=== PATIENT | female | born 1950 | race Caucasian/White ===

== ENCOUNTER → 2020-01-20 16:55 | Outpatient (CLI) | payer OTHER, SELFPAY ==
--- NOTE | 2020-01-20 | EMB_PTH ---
PATIENT: ELIAS HAMILTON LOC: [facility] U#:[id number] AGE/SX: 74/F ROOM: RE01/20/[address]: WILDER Lira : 1950 BED: DIS: SPEC #: [id number] RECD: 01/20/20 16:50 STATUS: SON GISELLA #: [id number] PITO: 01/20/20 00:[address]: Halle Ryder NP DEPT: SURGICAL PATHOLOGY RECD BY: Cammie Bullard ENTERED: 01/21/20 09:03 SP TYPE: ENDOM BX/C JARROD DR: Dr. Rito Newsome DO Tissues: Endometrium, NOS Procedures: Surgery Specimen Level IV HEADER OPERATION: Endometrial biopsy PRE-OP DIAGNOSIS: PMB TISSUE SUBMITTED: Endometrial biopsy MICROSCOPIC DIAGNOSIS Endometrium, biopsy: Benign strips of superficial glandular mucosa. AM:stoney 01/25/20 MICROSCOPIC DESCRIPTION Slides are reviewed. GROSS DESCRIPTION Received is one container labeled with the patient's name and not further designated. The specimen consists of multiple fragments of hemorrhagic soft tissue mixed with blood clot that in aggregate measure 2.5 x 2 x 0.2 cm. The specimen is totally submitted in one cassette. / SJ:stoney 01/21/20 TC:5 CPT: 71972
[2020-01-20 14:00] VITALS: BMI 25.6
[2020-01-28 05:46] LABS: HPV APTIMA, High Risk Negative (Negative)
== END ==
PROVIDERS: PCP Family Medicine; Referring Provider Nurse Practitioner Women's Health; Visit Provider Nurse Practitioner Women's Health
DX: Z12.4 Encounter for screening for malignant neoplasm of cervix (principal)
CPT/HCPCS: 87624; 88175; 88305; G0145

== ENCOUNTER → 2020-01-25 13:33 | Outpatient (CLI) | payer SELFPAY ==
[2020-01-20 14:00] VITALS: BMI 25.6
--- NOTE | 2020-01-25 13:38 | US_ITS ---
STUDY: ULTRASOUND TRANSVAGINAL CLINICAL: Female, 69 years old. Postmenopausal bleeding. TECHNIQUE: Transabdominal and Transvaginal COMPARISON: None. FINDINGS: The uterus is anteverted, midline and measures 7.6 x 5.2 x 3.3 cm. Endometrium measures 3 mm. Endometrial canal is distended with fluid. 2 mm x 2 mm echogenic nodule within the endometrium. Right ovary measures 2.0 x 1.3 x 1.3 cm and is normal. Left ovary not visualized. No fluid in the cul-de-sac. Urinary bladder volume is 346 mL. US/Pelvic (Non ) IMPRESSION: Endometrial nodule versus subserosal fibroid. Fluid in the endometrial canal. Left ovary not visualized. In view of the history of postmenopausal bleeding, malignancy should be considered. Recommend [facility] follow-up and consideration for MRI. Electronically Signed: Greg Lakhani MD at 23:30 EDT , Service support ,
--- NOTE | 2020-01-25 13:38 | US_ITS ---
STUDY: ULTRASOUND TRANSVAGINAL CLINICAL: Female, 69 years old. Postmenopausal bleeding. TECHNIQUE: Transabdominal and Transvaginal COMPARISON: None. FINDINGS: The uterus is anteverted, midline and measures 7.6 x 5.2 x 3.3 cm. Endometrium measures 3 mm. Endometrial canal is distended with fluid. 2 mm x 2 mm echogenic nodule within the endometrium. Right ovary measures 2.0 x 1.3 x 1.3 cm and is normal. Left ovary not visualized. No fluid in the cul-de-sac. Urinary bladder volume is 346 mL. US/Transvaginal Non- IMPRESSION: Endometrial nodule versus subserosal fibroid. Fluid in the endometrial canal. Left ovary not visualized. In view of the history of postmenopausal bleeding, malignancy should be considered. Recommend [facility] OPERATOR follow-up and consideration for MRI. Electronically Signed: Greg Lakhani MD at 23:30 EDT , Service support ,
== END ==
PROVIDERS: PCP Family Medicine; Referring Provider Nurse Practitioner Women's Health; Visit Provider Nurse Practitioner Women's Health
DX: N95.0 Postmenopausal bleeding (principal)
CPT/HCPCS: 76830; 76856

== ENCOUNTER 2020-02-09 12:47 | Day surgery (SDC) | payer SELFPAY ==
[2020-01-20 14:00] VITALS: BMI 25.6
[2020-02-03 12:03] VITALS: BMI 25.6
--- NOTE | 2020-02-09 | EMB_PTH ---
PATIENT: ELIAS HAMILTON LOC: [facility] – [place] U#:[id number] AGE/SX: 69/F ROOM: RE02/09/[address]: Dr. Anna Curran MD : 1950 BED: DIS: 02/09/2020 SPEC #: [id number] RECD: 02/09/20 14:58 STATUS: SON REQ #: [id number] PITO: 02/09/20 00:[address]: Anna Curran DEPT: SURGICAL PATHOLOGY RECD BY: Jose L Abad ENTERED: 02/10/20 08:11 SP TYPE: ENDOM BX/C OTHR DR: Dr. Rito Newsome DO Tissues: Endometrium, NOS Procedures: Surgery Specimen Level IV HEADER OPERATION: Hysteroscopy, D & C PRE-OP DIAGNOSIS: Postmenopausal bleeding TISSUE SUBMITTED: Endometrial curettings MICROSCOPIC DIAGNOSIS Endometrium, curettings: Strips of benign superficial endometrium. Rare strips of superficial endocervix. AM:stoney 02/11/20 MICROSCOPIC DESCRIPTION Slides are reviewed. GROSS DESCRIPTION Received in fixative is one container labeled with the patient's name and designated endometrial curettings. The specimen consists of multiple irregular fragments of aparicio soft tissue that in aggregate measure 2.5 x 0.5 x 0.1 cm. The specimen is totally submitted in one cassette. / SJ:stoney 02/10/20 TC:5 CPT: 10493
--- NOTE | 2020-02-09 05:31 | PCM.HPOB.BLA ---
- Problem List (1) Postmenopausal bleeding Status: Acute Comment: US and EMB pending. History and Physical Date of Admission: 02/09/20 Intake Vital Signs 02/03/20 BMI 25.6 02/03/20 Height 5 ft 2 in 02/03/20 Weight: 140 lb 4 oz 02/03/20 BP 110/60 Intake Visit Reasons: pre op/Tell PT to get labs done while she's here Kitchen Operator Required: No Accompanied by: self Is patient in pain?: No Allergies No Known Allergies Allergy (Verified 02/03/20 11:48) Medications Cayenne 20 mg PO DAILY 02/01/20 [History Confirmed 02/03/20] Cranberry Fruit Extract [Cranberry] 1,000 mg PO DAILY 02/01/20 [History Confirmed 02/03/20] Red Raspberry 2 cap PO DAILY 02/01/20 [History Confirmed 02/03/20] ascorbate calcium (vitamin C) 500 mg tablet 1 g PO DAILY tab 02/03/20 [History Confirmed 02/03/20] Is last menstrual period known: No Post menopausal: Yes Patient : No : No PFSH Surgical History History of delivery (Acute) Total knee replacement status (Acute) Family History Father Cancer skin Mother Ovarian cancer Social History (Updated 02/03/20 @ 12:[address] Anna Curran MD) Smoking Status: Never smoker alcohol intake: never substance use type: does not use caffeine: No what type of physical activity do you participate in: walking seatbelt use: always do you feel safe at home: Yes additional social history: [employer]- retired Patient is a stay at home mom HPI pre op/Tell PT to get labs done while she's here: Details: ELIAS HAMILTON is a 69 year old who presents for postmenopausal bleeding. she had a normal emb and us showed a polyp and so she is here for surgical consultation. she is not bleeding today denies any cramping or pain. Female Reproductive History Menopausal Symptoms: No night sweats Pregancy History 8 Elective abortions Hx Para 8 Spontaneous abortions Hx # Term Pregnancies Ectopic pregnancies Hx # Pregnancies Multiple births 1 # of living children ROS Const Constitutional: Denies fatigue, night sweats, weight gain or weight loss ENT ENT: Reports system reviewed and no additional complaints, except as docu Cardio Card: Denies chest pain Resp Resp: Denies cough or dyspnea GI GI: Reports as per HPI; denies abdominal pain, constipation, nausea or vomiting : Denies nipple discharge, urinary frequency, urinary incontinence, urinary hesitancy, urinary urgency, vaginal discharge, vaginal dryness, vaginal odor or vaginal itching Musc Musc: Denies joint pain, back pain or muscle weakness Skin Skin/Breast: Denies hair loss, change in hair, dry skin, breast lump, breast pain, breast skin changes or nipple discharge Neuro Neuro: Reports system reviewed and no additional complaints, except as docu Psych Psych: Reports system reviewed and no additional complaints, except as docu Endo Endo: Denies cold intolerance, excessive sweating, heat intolerance or increased thirst Mikal/Lymph Hematologic/Lymphatic: Denies easy bleeding, Denies easy bruising, Denies enlarged lymph nodes Exam Const General: cooperative, healthy appearing, comfortable, no acute distress, well developed Orientation: alert [facility] Head: normal to inspection, normocephalic Ears: hearing grossly normal bilaterally, external ears normal Nose: external nose normal, nares normal Face and sinus: normal facial exam Neck Neck: normal visual inspection, no lymphadenopathy Thyroid: thyroid normal Chest Chest palpation & inspection: normal inspection of the chest Resp Effort & Inspection: normal respiratory effort Auscultation: clear to auscultation bilaterally Cardio Rate: regular rate Rhythm: regular rhythm Heart Sounds: S1 normal, S2 normal GI Inspection: normal to inspection, non-distended Palpation: soft, no hepatosplenomegaly General: bladder normal to palpation External Female Exam: normal external appearance, normal appearance of the urethra Urethra: normal appearance of the urethra, normal palpation, no discharge Speculum Exam - Vagina: normal appearance of the vagina, normal vaginal discharge Speculum Exam - Cervix: normal appearance of the cervix, nontender Bimanual Exam- Vagina & Uterus: normal bimanual exam, uterine size normal, bladder normal to palpation, uterine shape normal, No cervical tenderness, uterine mobility normal, uterine consistency normal, normal cervical palpation, uterus non-tender Bimanual Exam- Adnexa, other: normal adnexae, adnexae mobile, no adnexal masses, pelvic support normal Pelvic Support: normal Musc Other: gross motor intact no deficits, full bilateral strength Skin General: no rashes or lesions noted Neuro General: alert, awake, moves all extremities, no focal motor deficits Motor: muscle tone normal throughout Extrem General: normal to inspection, no pedal edema Psych Appearance: grossly normal Mental Status: mental status grossly normal Affect: normal affect Speech and Movement: speech and movement normal Assessment & Plan Problems 1. Postmenopausal bleeding N95.0 US and EMB pending. Plan After discussing the patient's diagnosis and treatment plan options, patient wishes to proceed with surgical management. I have discussed with the patient the risks, benefits, and alternatives of the procedure which include but are not limited to risks of anesthesia, bleeding, infection, possible damage to bowel, bladder, or surrounding vasculature which could lead to additional surgery to evaluate any complications. Patient agrees to procedure and wishes to proceed. ACOG/uptodate references given for additional information regarding procedure.
--- NOTE | 2020-02-09 12:55 | EKG12_ITS ---
Test Reason : PREOP Blood Pressure : / mmHG Vent. Rate : 064 BPM Atrial Rate : 064 BPM P-R Int : 196 ms QRS Dur : 086 ms QT Int : 424 ms P-R-T Axes : 060 -19 -11 degrees QTc Int : 437 ms Normal sinus rhythm Low voltage QRS Septal infarct , age undetermined Abnormal ECG When compared with ECG of 09-MAY-2016 09:09, Incomplete right bundle branch block is no longer Present Septal infarct is now Present Confirmed by CRISTIANA REEVES ([id number]), brands editor HAYLEE SERRANO ([id number]) on 02/15/2020 12:41:30 PM Referred By: Anna Curran Confirmed By:CRISTIANA REEVES
[2020-02-09 13:02] VITALS: BP 130/75; PULSE 75; RESP 16; TEMP 36.5; O2SAT 99; BMI 23.6
[2020-02-09 13:29] LABS: Hematocrit 36.6 % (37-47); Hemoglobin 12.2 g/dL (12.0-15.0); Mean Corp Hgb Conc 33.3 g/dL (32-36); Mean Corpuscular Hgb 32.3 pg (27.0-32.0); Mean Corpuscular Volume 96.8 fL (81-99); Platelet Count 171 K/mm3 (150-450); RBC Distribution Width CV 13.2 % (11.6-14.6); RBC Distribution Width SD 46.6 fl (35.1-43.9); Red Blood Count 3.78 M/mm3 (4.2-5.4); White Blood Count 15.4 K/mm3 (4.4-11.0)
[2020-02-09] MEDS: Lactated Ringers 1,000 ML 100 ML IV (13:30)
[2020-02-09 13:46] LABS: AST(SGOT) 19 U/L (15-37); Alanine Aminotransfer ALT/SGPT 22 U/L (13-56); Albumin, Serum 3.7 g/dL (3.2-5.0); Alkaline Phosphatase 54 U/L (45-117); Anion Gap 3 (5-15); BUN 9 mg/dL (7-18); BUN/Creat Ratio 13.8 RATIO (10-20); Calcium,Total 8.8 mg/dL (8.5-10.1); Chloride 106 mmol/L (98-107); Creatinine, Serum 0.65 mg/dL (0.55-1.02); EST Glomerular Filtration Rate 96 mL/min (>60); Est Glom Filt Rate - Afr Amer 116 mL/min (>60); Estimated Creatinine Clearance 45.85 ml/min; Globulin 3.6 g/dL (2.2-4.2); Glucose 83 mg/dL (74-106); Potassium 3.8 mmol/L (3.5-5.1); Protein, Total 7.3 g/dL (6.4-8.2); Sodium Level 138 mmol/L (136-145)
--- NOTE | 2020-02-09 14:20 | PCM.OPRPT ---
Problem List (1) Postmenopausal bleeding Status: Acute Comment: US and EMB pending. Report of Operation Date of Procedure: 02/09/20 Pre-Operative Diagnosis: postmenopausal bleeding Post-Operative Diagnosis: same Surgery/Procedure Performed:: d and c hysteroscopy Description of Surgical Findings:: atrophic lining. Type of Anesthesia:: Local MAC Special Medications: none Specimen's removed: emc Drains: none Estimated Blood Loss (mL): 10 Fluids Replaced: Crystalloid Description of Procedure: Patient was prepped and draped in a normal sterile fashion under MAC anesthesia. A weighted speculum was placed in the vagina and the anterior lip of the cervix was grasped with a single-tooth tenaculum. A paracervical block was placed with 1% lidocaine. Cervix was progressively dilated to allow passage of a 5 mm hysteroscope. The lining was fully visualized and noted to have an atrophic lining with lesions seen. Uterine sounded to 7 cm. Curettage was performed and scant amount of tissue collected, sent to pathology. All instruments were removed from the vagina and excellent hemostasis was noted. Patient was awoken and taken to recovery in stable condition. Grafts/Implants Used: none - Complications none - Admit VTE Documentation VTE Present on Admission: No VTE Mechan Device Prophylaxis: SCD's Multi Select Codes - Urinary/Genital Urinary/Genital CPT Codes: 46078 Non-ob D&C, 92426 Hysteroscopy, diagnostic
--- NOTE | 2020-02-09 14:22 | PCM.DC.D&C ---
Discharge Diet: No Restrictions Discharge Activity: Return to Normal Activity, May Shower, May Take a Tub Bath Allergies/Adverse Reactions: Allergies No Known Allergies Allergy (Verified 02/09/20 13:01) Medications to take at Discharge Cayenne 20 mg PO DAILY 02/01/20 Cranberry Fruit Extract [Cranberry] 1,000 mg PO DAILY 02/01/20 Red Raspberry 2 cap PO DAILY 02/01/20 ascorbate calcium (vitamin C) 500 mg tablet 1 g PO DAILY tab 02/03/20 Orders to be completed after discharge: 12 Lead EKG [[facility]] Time Frame: 02/01/20, Facility: [facility], Location: Cardiovascular Services Primary Care Physician: Rito Newsome DO [Primary Care Provider] - Test Results: Test results from this visit will be discussed in further detail at your follow-up appointment, if applicable. Please Follow Up With: Anna Curran MD - [phone]
[2020-02-09 14:41] VITALS: BP 130/75; BP 98/59; PULSE 60; RESP 16; TEMP 37.4; O2SAT 98
[2020-02-09 14:46] VITALS: BP 100/65; BP 130/75; PULSE 62; RESP 16; O2SAT 97
[2020-02-09 14:51] VITALS: BP 108/58; BP 130/75; PULSE 66; RESP 16; O2SAT 98
[2020-02-09 14:56] VITALS: BP 114/68; BP 130/75; PULSE 65; RESP 16; TEMP 36.8; O2SAT 99
[2020-02-09 15:40] VITALS: BP 130/75
== END 2020-02-09 15:43 | disposition home or self-care (01) ==
LOC: SDC 12:50 → AC 12:51
PROVIDERS: Anesthesiology; PCP Family Medicine; Referring Provider Obstetrics & Gynecology; Visit Provider Obstetrics & Gynecology
PROC: 0UDB8ZZ Extraction of Endometrium, Via Natural or Artificial Opening Endoscopic (ICD-10-PCS; CPT 58558; principal; 2020-02-09 14:20)
DX: N95.0 Postmenopausal bleeding (principal); Z11.59 Encounter for screening for other viral diseases
CPT/HCPCS: 00952; 58558; 36415; 80053; 85027; 86850; 86900; 86901; 87635; 88305; 93005; G2023; J7120; J2405; U0003